=== PATIENT | male | born 1990 | race Caucasian/White ===

== ENCOUNTER 2021-11-14 16:49 | Outpatient (CLI) | payer BC, SELFPAY ==
[2021-11-14 21:43] LABS: Albumin* 4.7 g/dL (3.3-5.0); Chloride* 99 mmol/L (96-114); Potassium* 4.7 mmol/L (3.6-5.1); Sodium* 137 mmol/L (135-149)
[2021-11-14 21:45] LABS: Bilirubin Total* 0.8 mg/dL (0.1-1.5); Creatinine* 0.9 mg/dL (0.5-1.5); Estimated Glomerular Filt Rate 119 ml/min
[2021-11-14 21:46] LABS: Alanine Aminotransferase* 22 U/L (4-50); Alkaline Phosphatase* 68 U/L (40-150); Aspartate Amino Transferase* 31 U/L (12-35); Blood Urea Nitrogen* 13 mg/dL (5-24); Calcium* 9.6 mg/dL (8.4-10.6); Carbon Dioxide* 30 mmol/L (20-32); Glucose* 90 mg/dL (60-115); Total Protein* 7.8 g/dL (6.0-8.3)
[2021-11-14 22:34] LABS: Vitamin B12* 379 pg/mL (243-894)
== END 2021-11-14 16:50 | disposition home or self-care (01) ==
PROVIDERS: PCP Physician Assistant Medical; Visit Provider Physician Assistant Medical
DX: R53.1 Weakness (principal); R53.83 Other fatigue
CPT/HCPCS: 80053; 82607; 84443

== ENCOUNTER 2022-02-16 11:55 | Outpatient (CLI) | payer BC, SELFPAY ==
[2022-02-16 22:34] LABS: Albumin* 4.9 g/dL (3.3-5.0); Chloride* 100 mmol/L (96-114); Sodium* 136 mmol/L (135-149)
[2022-02-16 22:37] LABS: Alanine Aminotransferase* 22 U/L (4-50); Alkaline Phosphatase* 56 U/L (40-150); Aspartate Amino Transferase* 24 U/L (12-35); Bilirubin Total* 0.6 mg/dL (0.1-1.5); Blood Urea Nitrogen* 15 mg/dL (5-24); Calcium* 9.7 mg/dL (8.4-10.6); Carbon Dioxide* 30 mmol/L (20-32); Creatinine* 0.8 mg/dL (0.5-1.5); Estimated Glomerular Filt Rate 123 ml/min; Glucose* 67 mg/dL (60-115); Lipase* 57 U/L (23-300); Total Protein* 7.5 g/dL (6.0-8.3)
== END 2022-02-16 11:56 | disposition home or self-care (01) ==
PROVIDERS: PCP Physician Assistant Medical; Visit Provider Physician Assistant Medical
DX: R10.13 Epigastric pain (principal)
CPT/HCPCS: 80053; 83690

== ENCOUNTER 2022-05-11 10:41 | Outpatient (CLI) | payer BC, SELFPAY ==
[2022-05-11 22:01] LABS: Cholesterol* 181 mg/dL (90-199)
[2022-05-11 22:02] LABS: HDL Cholesterol* 93 mg/dL (>=40); LDL Cholesterol Calculated 72 mg/dL (<100); Triglycerides* 78 mg/dL (40-149)
[2022-05-11 22:47] LABS: HIV 1/2/P24 Combo Screen* Negative (Negative)
[2022-05-11 22:57] LABS: Hepatitis C Virus Antibody* Negative (Negative)
== END 2022-05-11 10:42 | disposition home or self-care (01) ==
PROVIDERS: PCP Physician Assistant Medical; Visit Provider Physician Assistant Medical
DX: Z00.00 Encounter for general adult medical examination without abnormal findings (principal); Z11.3 Encounter for screening for infections with a predominantly sexual mode of transmission; Z13.6 Encounter for screening for cardiovascular disorders
CPT/HCPCS: 80061; 86703; 86803

== ENCOUNTER 2023-08-29 13:23 | Outpatient (CLI) | payer BC, SELFPAY | END 2023-08-29 13:24 | disposition home or self-care (01) | PROVIDERS: PCP Physician Assistant Medical; Visit Provider Family Medicine | DX: R07.9 Chest pain, unspecified (principal) | CPT/HCPCS: 80053; 83690 ==

== ENCOUNTER 2023-12-17 15:46 | Outpatient (CLI) | payer BC, SELFPAY | END 2023-12-17 15:47 | disposition home or self-care (01) | PROVIDERS: PCP Physician Assistant Medical; Visit Provider Family Medicine | DX: R53.83 Other fatigue (principal); R10.9 Unspecified abdominal pain | CPT/HCPCS: 83690; 84439; 84443 ==

== ENCOUNTER 2024-06-03 13:08 | Outpatient (CLI) | payer BC, SELFPAY | END 2024-06-03 13:09 | disposition home or self-care (01) | PROVIDERS: PCP Physician Assistant Medical; Visit Provider Family Medicine | DX: R53.83 Other fatigue (principal); F41.9 Anxiety disorder, unspecified; R10.9 Unspecified abdominal pain; F10.10 Alcohol abuse, uncomplicated; Z13.6 Encounter for screening for cardiovascular disorders | CPT/HCPCS: 80053; 80061; 83690 ==